=== PATIENT | female | born 1980 | race Hispanic/Latino ===

== ENCOUNTER 2023-09-04 14:29 | Outpatient (CLI) | payer OTHER | END 2023-09-04 14:30 | disposition home or self-care (01) | LOC: CSHRAD 14:29 | PROVIDERS: ATTEND Family Medicine | DX: M54.50 Low back pain, unspecified (principal); M47.816 Spondylosis without myelopathy or radiculopathy, lumbar region | CPT/HCPCS: 72100 ==